=== PATIENT | female | born 2000 | race Caucasian/White ===

== ENCOUNTER 2021-01-29 14:47 | Observation (INO) | payer MEDICAID ==
[~2021-01-29] VITALS: Ht 154.9 cm; Wt 61.2 kg
[2021-02-02] MEDS ORDERED: IBUP-2030 PO (07:53)
[2021-02-02] MEDS ORDERED: MULT-1146 MT (07:53)
[2021-02-02] MEDS ORDERED: FERR325T23 PO (07:53)
== END 2021-01-29 16:40 | disposition home or self-care (01) ==
LOC: 8 EST LDRP 14:47
PROVIDERS: ADMIT Obstetrics & Gynecology; ATTEND Obstetrics & Gynecology
DX: O42.92 Full-term premature rupture of membranes, unspecified as to length of time between rupture and onset of labor (principal); Z3A.39 39 weeks gestation of pregnancy
CPT/HCPCS: 99281; G0378

== ENCOUNTER 2022-10-20 20:16 | Inpatient (IN) | payer MEDICAID ==
[~2022-10-20] VITALS: Ht 155 cm; Wt 74.4 kg
[~2022-10-20 20:16] MED LIST: FERR325T23 PO; IBUP-2030 PO; MULT-1146 MT
[2022-10-20] MEDS ORDERED: LACTATED RINGERS 1,000 ML IV ONE (21:30)
[2022-10-20 21:54] LABS: CLARITY URINE CLEAR (CLEAR); COLOR URINE YELLOW (YELLOW); KETONES URINE NEGATIVE (NEGATIVE); LEUKOCYTE ESTERASE URINE 1+ (NEGATIVE); NITRITE URINE NEGATIVE (NEGATIVE); OCCULT BLOOD URINE 1+ (NEGATIVE); PROTEIN URINE NEGATIVE (NEGATIVE); SPECIFIC GRAVITY URINE 1.017 (1.005-1.030); UROBILINOGEN URINE 0.2 E.U./dL (0.2-1.0)
[2022-10-20 21:55] LABS: BASOPHILS % 0.4 % (0.0-2.0); EOSINOPHILS % 1.6 % (0.0-5.0); HEMATOCRIT. 37.9 % (36.0-48.0); HEMOGLOBIN. 12.9 g/dL (12.0-16.0); MEAN CORPUSCULAR HEMOGLOBIN 27.7 pg (28.0-32.0); MEAN CORPUSCULAR VOLUME 81.6 fL (81.0-99.0); MEAN PLATELET VOLUME 9.6 fl (7.4-10.4); MONOCYTES % 7.9 % (2.0-8.0); NEUTROPHILS % 66.1 % (40.0-76.0); PLATELET 252 x1000/uL (130-400); RED BLOOD CELL COUNT 4.65 mill/uL (4.2-5.4); RED CELL DISTRIBUTION WIDTH 15.7 % (11.6-14.6)
[2022-10-20] MEDS ORDERED: BUTORPHANOL TARTRATE 2 MG/ML VIAL IV PRN (22:15)
[2022-10-20] MEDS ORDERED: NALOXONE HCL 0.4 MG/ML 1ML VIAL IM PRN (22:15)
[2022-10-20] MEDS ORDERED: MISOPROSTOL 100MCG TABLET VG SCH (22:15)
[2022-10-20] MEDS ORDERED: LIDOCAINE HCL 1% 20ML VIAL (Pyxis) INJ INFIL SCH (22:15)
[2022-10-20] MEDS ORDERED: RHO(D) IMMUNE GLOBULIN 300 MCG/SYR IM ONE (22:15)
[2022-10-20] MEDS ORDERED: METHYLERGONOVINE MALEATE 0.2 MG/ML IM PRN (22:15)
[2022-10-20] MEDS ORDERED: LACTATED RINGERS 1,000 ML IV SCH (22:15)
[2022-10-20] MEDS ORDERED: CARBOPROST TROMETHAMINE 250 MCG/ML AMPUL IM PRN (22:15)
[2022-10-20] MEDS ORDERED: OXYTOCIN 30 UNITS/500ML NS PMX 500 ML IV SCH (22:15)
[2022-10-20 22:19] LABS: *AMPHETAMINES SCREEN URINE NEGATIVE (NEGATIVE); *BARBITURATES SCREEN URINE NEGATIVE (NEGATIVE); *BENZODIAZEPINES SCREEN URINE NEGATIVE (NEGATIVE); *COCAINE SCREEN URINE NEGATIVE (NEGATIVE); CANNABINOID URINE SCREEN NEGATIVE (NEGATIVE); METHADONE URINE SCREEN NEGATIVE (NEGATIVE); OPIATES URINE SCREEN NEGATIVE (NEGATIVE); PHENCYCLIDINE URINE SCREEN NEGATIVE (NEGATIVE)
[2022-10-20 23:38] LABS: INR 0.9; PARTIAL THROMBOPLASTIN TIME 27.3 sec (23.4-31.0); PROTHROMBIN TIME 9.8 sec (9.6-11.0)
[2022-10-21] MEDS ORDERED: LANOLIN OINT 7GM TUBE TOP PRN (01:30)
[2022-10-21] MEDS ORDERED: DIPHENHYDRAMINE 25MG CAPSULE PO PRN (01:30)
[2022-10-21] MEDS ORDERED: RHO(D) IMMUNE GLOBULIN 300 MCG/SYR IM PRN (01:30)
[2022-10-21] MEDS ORDERED: BISACODYL 10MG SUPP PR PRN (01:30)
[2022-10-21] MEDS ORDERED: ACETAMINOPHEN WITH CODEINE 300/30MG TABLET PO PRN (01:30)
[2022-10-21] MEDS ORDERED: BENZOCAINE/LANOLIN/ALOE VERA SPRAY TOP PRN (01:30)
[2022-10-21] MEDS ORDERED: HEMORRHOIDAL SUPP PR PRN (01:30)
[2022-10-21] MEDS ORDERED: OXYTOCIN 30 UNITS/500ML NS PMX 500 ML IV SCH (01:30)
[2022-10-21] MEDS ORDERED: GLYCERIN/WITCH HAZEL LEAF MEDICATED PAD TOP PRN (01:30)
[2022-10-21] MEDS ORDERED: IBUPROFEN 400MG TABLET PO PRN (01:30)
[2022-10-21 01:33] LABS: HEPATITIS B SURFACE ANTIGEN NEGATIVE
[2022-10-21] MEDS: IBUPROFEN 800MG TABLET PO PRN ×3 (02:52→20:53)
[2022-10-21] MEDS ORDERED: IBUPROFEN 800MG TABLET PO PRN (05:15)
[2022-10-21] MEDS: MAGNESIUM/ALUMINUM HYDROXIDE/SIMETHICONE 30ML UDC PO SCH ×4 (07:30→20:53)
[2022-10-21 08:00] VITALS: BP 100/48
[2022-10-21] MEDS: SIMETHICONE 80MG TABLET CHEW PO SCH ×4 (08:00→20:53)
[2022-10-21] MEDS: PRENATAL VIT/FE FUMARATE/FA TABLET PO SCH (09:00)
[2022-10-21] MEDS ORDERED: FERROUS SULFATE 325MG TABLET PO SCH (09:30)
[2022-10-21 15:59] VITALS: BP 126/68
[2022-10-21 20:00] VITALS: BP 112/61
[2022-10-21] MEDS ORDERED: DOCUSATE SODIUM 100MG CAPSULE PO SCH (21:00)
[2022-10-22 04:00] VITALS: BP 100/57
[2022-10-22 07:05] LABS: BASOPHILS % 0.3 % (0.0-2.0); HEMATOCRIT. 32.2 % (36.0-48.0); LYMPHOCYTES % 34.3 % (20.0-50.0); MEAN CORPUSCULAR HEMOGLOBIN 27.9 pg (28.0-32.0); MEAN CORPUSCULAR VOLUME 81.8 fL (81.0-99.0); MEAN PLATELET VOLUME 9.3 fl (7.4-10.4); MONOCYTES % 7.7 % (2.0-8.0); NEUTROPHILS % 55.7 % (40.0-76.0); PLATELET 195 x1000/uL (130-400); RED BLOOD CELL COUNT 3.94 mill/uL (4.2-5.4); RED CELL DISTRIBUTION WIDTH 15.4 % (11.6-14.6)
[2022-10-22 07:30] VITALS: BP 108/51
[2022-10-22] MEDS: MAGNESIUM/ALUMINUM HYDROXIDE/SIMETHICONE 30ML UDC PO SCH ×2 (07:30→12:30)
[2022-10-22] MEDS: SIMETHICONE 80MG TABLET CHEW PO SCH ×2 (08:00→13:00)
[2022-10-22] MEDS: FERROUS SULFATE 325MG TABLET PO SCH ×2 (08:09→12:30)
[2022-10-22] MEDS: PRENATAL VIT/FE FUMARATE/FA TABLET PO SCH (08:09)
[2022-10-22 15:28] VITALS: BP 105/60
== END 2022-10-22 16:00 | disposition home or self-care (01) | DRG 560 ==
LOC: 8 EST LDRP 20:16 → OBSVTOIN 20:16 → 8EST 10-21 01:07
PROVIDERS: ADMIT Obstetrics & Gynecology; ATTEND Obstetrics & Gynecology
PROC: 10E0XZZ Delivery of Products of Conception, External Approach (ICD-10-PCS; principal; 2022-10-17)
DX: O26.893 Other specified pregnancy related conditions, third trimester (principal); Z37.0 Single live birth; N30.90 Cystitis, unspecified without hematuria; Z3A.40 40 weeks gestation of pregnancy; Z20.822 Contact with and (suspected) exposure to COVID-19
CPT/HCPCS: 36415; 80305; 81003; 85025; 86592; 86703; 86762; 86850; 86900; 87340; 87426; 99281; G0378; J0595; J3490; J2590